=== PATIENT | female | born 1925 | race Caucasian/White ===

== ENCOUNTER → 2016-04-14 | Outpatient (CLI) | payer MEDICARE, BC ==
[~2016-04-14] MED LIST: ANTIFUNGAL; ENALAPRIL2.5 MG PO; FLOMAX0.4 MG PO; PREMARIN 0.60.625 M1 PO
== END ==
LOC: MC.RAD 11:35
DX: Z12.31 Encounter for screening mammogram for malignant neoplasm of breast (principal); D24.2 Benign neoplasm of left breast; D24.1 Benign neoplasm of right breast